=== PATIENT | male | born 1960 | race Caucasian/White ===

== ENCOUNTER 2016-12-26 22:23 | Observation (INO) | payer OTHER ==
[~2016-12-26] VITALS: Ht 188 cm; Wt 98.5 kg
[2016-12-26] MEDS ORDERED: CATAPRES 0.1MG0.1 MG PO (23:32)
[2016-12-26] MEDS ORDERED: LISINOPRIL40 MG PO (23:32)
[2016-12-26] MEDS ORDERED: NEURONTIN 400400 MG PO (23:33)
[2016-12-26] MEDS ORDERED: MOBIC15 MG PO (23:33)
[2016-12-26] MEDS ORDERED: OXYCODONE HCL15 MG PO (23:34)
[2016-12-26] MEDS ORDERED: OPANA ER15 MG PO (23:35)
[2016-12-26] MEDS ORDERED: SEROQUEL25 MG PO (23:36)
[2016-12-26] MEDS ORDERED: ZANAFLEX4 MG PO (23:36)
[2016-12-26] MEDS ORDERED: PROTONIX40 MG PO (23:51)
[2016-12-26] MEDS ORDERED: FLUOXETINE HCL40 MG PO (23:52)
[2016-12-26] MEDS ORDERED: PROVENTIL HFA 61 INH INH (23:54)
[2016-12-27] MEDS ORDERED: OXYCODONE HCL10 MG PO (00:20)
[2016-12-27] MEDS ORDERED: IMDUR ER TAB 3030 MG PO (17:59)
[2016-12-27] MEDS ORDERED: ASPIR 8181 MG PO (17:59)
[2016-12-27] MEDS ORDERED: LOPRESSOR 25 MG25 MG PO (18:00)
== END 2016-12-27 18:40 | disposition home or self-care (01) ==
LOC: MED SURG 4 23:24
PROVIDERS: ADMIT Internal Medicine
DX: R07.9 Chest pain, unspecified (principal); I10 Essential (primary) hypertension; G89.4 Chronic pain syndrome; F17.200 Nicotine dependence, unspecified, uncomplicated; Z79.891 Long term (current) use of opiate analgesic; Z79.82 Long term (current) use of aspirin; Z79.899 Other long term (current) drug therapy; Z90.49 Acquired absence of other specified parts of digestive tract; Z82.49 Family history of ischemic heart disease and other diseases of the circulatory system
CPT/HCPCS: ECHO; 36415; 78452; 80061; 83036; 84484; 93005; 93017; 93306; 96374; 96375; 96376; A9502; G0378; G0379; J2270; J2785